=== PATIENT | female | born 1960 | race Caucasian/White ===

== ENCOUNTER 2021-12-13 09:41 | Emergency (ER) | payer BC ==
[~2021-12-13] VITALS: Ht 154.9 cm; Wt 68.9 kg
--- NOTE | 2021-12-13 09:45 | NUR ---
TO ER BED 12. BIB SON C/O R ELBOW PAIN AND L KNEE ABRASION. S/P GLF. DENIES KO. AWAITING MD SMITH. WILL CONTINUE TO MONITOR.
[2021-12-13] MEDS ORDERED: HYDROCODONE/APAP 5/325MG TABLET ONE (10:13)
[2021-12-13] MEDS ORDERED: TDAP [DIPH/PERTUSSIS/TET] 0.5 ML VIAL IM ONE ×2 (10:13→10:30)
[2021-12-13] MEDS ORDERED: HYDROCODONE/APAP 5/325MG TABLET PO ONE (10:30)
[2021-12-13] MEDS ORDERED: ESCI10TA PO (11:24)
[2021-12-13] MEDS ORDERED: BENA1TAB18 PO (11:24)
[2021-12-13] MEDS ORDERED: LETR2.5T8 PO (11:24)
[2021-12-13] MEDS ORDERED: CLON0.5T4 PO (11:24)
[2021-12-13] MEDS ORDERED: ATOR10TA PO (11:24)
--- NOTE | 2021-12-13 11:53 | NUR ---
COVID SWAB DONE AND SENT TO LAB
[2021-12-13] MEDS ORDERED: CHOL100043 PO (12:21)
[2021-12-13 12:23] LABS: BASOPHILS % (AUTO) 0.2 % (0.0-2.0); EOSINOPHILS % (AUTO) 0.2 % (0.0-6.0); HEMATOCRIT 40 % (33-45); HEMOGLOBIN 13.6 g/dL (11.5-14.8); LYMPHOCYTES # (AUTO) 1.2 K/uL (0.8-4.8); LYMPHOCYTES % (AUTO) 10.5 % (20.0-44.0); MEAN CORPUSCULAR HGB CONC 34 g/dl (31.0-36.0); MEAN CORPUSCULAR VOLUME 87 fL (82-100); MONOCYTES # (AUTO) 0.5 K/uL (0.1-1.30); MONOCYTES % (AUTO) 4.2 % (2.0-12.0); NEUTROPHILS # (AUTO) 9.6 K/uL (1.8-8.9); NEUTROPHILS % (AUTO) 84.9 % (43.0-81.0); PLATELET COUNT (AUTO) 267 K/uL (150-450); RED BLOOD CELL COUNT(AUTO) 4.65 MIL/uL (4.0-5.2); WHITE BLOOD COUNT (AUTO) 11.3 K/uL (4.3-11.0)
[2021-12-13 12:34] LABS: CALCIUM, SERUM 8.7 mg/dL (8.5-10.1); CREATININE 0.6 mg/dL (0.6-1.3); POTASSIUM 3.5 mmol/L (3.5-5.1)
[2021-12-13] MEDS ORDERED: ONDANSETRON HCL/PF 4 MG/2 ML VIAL ONE (12:44)
[2021-12-13] MEDS ORDERED: MORPHINE SULFATE INJ 4 MG/ML DISP.SYRIN ONE (12:44)
[2021-12-13] MEDS ORDERED: MORPHINE SULFATE INJ 2 MG/ML DISP.SYRIN IV ONE (13:00)
[2021-12-13] MEDS ORDERED: ONDANSETRON HCL/PF 4 MG/2 ML VIAL IV ONE (13:00)
--- NOTE | 2021-12-13 16:54 | NUR ---
KATHIE GARRETT [facility] [employer] CALLED TO ASK FOR CLINICALS, ENDORSED TO ADMITTING-WILL FAX
--- NOTE | 2021-12-13 17:05 | NUR ---
JAVIER SANTANA CALLED [phone] [facility] [id number] NO BED YET. AWAITING BED AT [facility].
--- NOTE | 2021-12-13 17:22 | NUR ---
[facility] BED 2268 REPORT [phone] MUSA
--- NOTE | 2021-12-13 17:25 | NUR ---
ATTEMPTED TO GIVE REPORT, NURSE KEISHA IS DISCHARGING ANOTHER PATIENT, WILL CALL AGAIN
--- NOTE | 2021-12-13 17:37 | NUR ---
CALLED [facility] PER [facility] ETA 2229 AND AUTH NOT WORKING
--- NOTE | 2021-12-13 17:38 | NUR ---
JAVIER SANTANA CALLED [phone] LEFT VM TO GET BETTER ETA FROM AMBULANCE.
--- NOTE | 2021-12-13 17:52 | NUR ---
REPORT GIVEN TO KEISHA ROSS FOR [facility]
--- NOTE | 2021-12-13 17:55 | NUR ---
KATHIE FROM [facility] CALLED AND SUGGESTED TO USE [phone] [facility] OR ANY AMBULANCE COMPANY THAT CAN GET US A BETTER ETA.
--- NOTE | 2021-12-13 17:57 | NUR ---
[facility] CALLED WITH AUTH ETA 60 MINS PER DAVINA.
--- NOTE | 2021-12-13 18:52 | NUR ---
PICKED UP BY TRANSPORT IN STABLE CONDITION
[2021-12-13 18:53] VITALS: BP 147/93
== END 2021-12-13 19:09 | disposition short-term general hospital (02) ==
LOC: ER 09:46
DX: S42.341A Displaced spiral fracture of shaft of humerus, right arm, initial encounter for closed fracture (principal); S82.045A Nondisplaced comminuted fracture of left patella, initial encounter for closed fracture; W01.0XXA Fall on same level from slipping, tripping and stumbling without subsequent striking against object, initial encounter; Y93.01 Activity, walking, marching and hiking; Y92.89 Other specified places as the place of occurrence of the external cause; E78.5 Hyperlipidemia, unspecified; Z85.3 Personal history of malignant neoplasm of breast; S80.212A Abrasion, left knee, initial encounter; M25.462 Effusion, left knee; R91.8 Other nonspecific abnormal finding of lung field; Z20.822 Contact with and (suspected) exposure to COVID-19; I11.9 Hypertensive heart disease without heart failure; Z79.899 Other long term (current) drug therapy
CPT/HCPCS: 29105; 29505; 36415; 71045; 73030; 73060; 73080; 73564; 80048; 85025; 85730; 86850; 87426; 90471; 90715; 93005; 96374; 96375; 99285; C9803; J2270; J2405